=== PATIENT | female | born 1985 | race Caucasian/White ===

== ENCOUNTER 2018-05-07 17:45 | Emergency (ER) | payer BC, OTHER ==
[2018-05-07 17:51] VITALS: BP 130/73; PULSE 80; TEMP 98.8; BMI 21.9
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
== END 2018-05-07 21:36 | disposition home or self-care (01) ==
LOC: FER 17:45 → SUPCPDRO 17:45 → FER 21:36
DX: M54.2 Cervicalgia (principal); V43.52XA Car driver injured in collision with other type car in traffic accident, initial encounter; Y93.89 Activity, other specified; Y92.410 Unspecified street and highway as the place of occurrence of the external cause
CPT/HCPCS: 72050-TC-FY; 84703; 99282-25

== ENCOUNTER 2018-09-22 12:02 | Day surgery (SDC) | payer BC ==
[2018-09-21 15:12] VITALS: BMI 22.4
[2018-09-22] MEDS ORDERED: DEXAMETHASONE SOD PHOSPHATE 4 MG/1 ML VIAL ONE (13:41)
[2018-09-22] MEDS ORDERED: LIDOCAINE HCL/PF 2% SDV 5ML VIAL ONE (13:41)
[2018-09-22] MEDS ORDERED: MIDAZOLAM HCL 2 MG/2 ML SINGLE DOSE VIAL ONE (13:42)
[2018-09-22] MEDS ORDERED: PROPOFOL 20 ML ONE (13:42)
--- NOTE | 2018-09-22 13:50 | HP ---
Past Medical History - Primary Care Physician PCP:: Liborio Fernández - Admission Chief Complaint: 33yo P1 with at 6wks and missed Ab History of Present Illness: Pt with early and missed Ab. 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: Alzheimer's, CVA, Dementia, Migraine, Multiple Sclerosis, Peripheral Neuropathy, Parkinson's, Seizure, Syncope, TIA, Vertigo, Other Cardiovascular: No: AFIB, Aneurysm, Aortic Insufficiency, Aortic Stenosis, CAD, CHF, Deep Vein Thrombosis, HTN, Hyperlipdemia, [place], Mitral Insufficiency, Mitral Stenosis, Murmur, Pulmonary Hypertension, Other Pulmonary: No: Asthma, Bronchitis, Cancer, COPD, O2 Dependent, Pneumonia, Previously Intubated, Pulmonary Embolus, Pulmonary Fibrosis, Sleep Apnea, Other Gastrointestinal: Yes: Gastritis Hepatobiliary: No: Cirrhosis, Cholelithiasis, Cholecystitis, Choledocholithiasis , Hepatitis A, Hepatitis B, Hepatitis C, Other Renal/: No: Renal Failure, Renal Inusuff, BPH, Cancer, Hematuria, Hemodialysis , Neurogenic Bladder, Renal Calculi, UTI, Other Reproductive: No: Ectopic , Endometriosis, Fibroids, PID, Polycystic Ovary Syndrome, Postmenopausal, Other ...Para: 1 (C/S) ...Term: 1 ... Weeks Gestation by Dates: 6 Heme/Onc: No: Anemia, B12 Deficiency, Bleeding Disorder, Cancer, Current Chemotherapy, Current Radiation Therapy, Hemochromatosis, Hypercoaguable State, Myeloproliferative Synd, Sickle Cell Disease, Sickle Cell Trait, Thrombocytopenia, Other Infectious Disease: No: AIDS, C-Diff, Herpes Zoster, HIV, MRSA, STD's, Tuberculosis, VREF, Other Psych: No: Addictions, Anxiety, Bipolar, Depression, Panic, Psychosis, Schizophrenia, Other Musculoskeletal: No: Bursitis, Chronic low back pain, Hemiparesis, Hemiplegia, Osteoarthritis, Paraplegia, Other Rheumatology: No: Fibromyalgia, Gout, Lupus, Rheumatoid Arthritis, Sarcoidosis, Vasculitis, Other ENT: No: Allergic Rhinitis, Sinusitis, Other Endocrine: No: Racine's Disease, Lauri's Disease, Diabetes Insipidus, Diabetes Mellitus, Hyperparathyroidism, Hyperthyroidism, Hypothyroidism, Osteopenia, SIADH, Other Dermatology: No: Basal Cell, Cellulitis, Eczema, Melanoma, Psoriasis, Squamous Cell, Other - Past Surgical History Past Surgical History: Yes: Hx Myomectomy: No Hx Transabdominal Cerclage: No Additional Surgical History: Breast augmentation - Smoking History Smoking history: Never smoked Have you smoked in the past 12 months: No - Alcohol/Substance Use Hx Alcohol Use: Yes (OCCASIONAL BEFORE ) History of Substance Use: reports: None - Social History Usual Living Arrangement: Yes: With Spouse, With Child ADL: Independent History of Recent Travel: No Home Medications - Allergies Allergies/Adverse Reactions: Allergies Allergy/AdvReac Type Severity Reaction Status Date / Time shrimp Allergy Severe Hives Verified 09/22/18 12:40 - Home Medications Home Medications: Ambulatory Orders NK [No Known Home Medication] 09/21/18 Family Disease History - Family Disease History Family History: Unremarkable Review of Systems - Review of Systems Constitutional: reports: No Symptoms Eyes: reports: No Symptoms HENT: reports: No Symptoms Neck: reports: No Symptoms Cardiovascular: reports: No Symptoms Respiratory: reports: No Symptoms Gastrointestinal: reports: No Symptoms Genitourinary: reports: No Symptoms Breasts: reports: No Symptoms Reported Musculoskeletal: reports: No Symptoms Integumentary: reports: No Symptoms Neurological: reports: No Symptoms Endocrine: reports: No Symptoms Hematology/Lymphatic: reports: No Symptoms Psychiatric: reports: No Symptoms Pain Intensity: 0 Physical Exam-LAST WAXER Vital Signs: Vital Signs Temperature 98.6 F 09/22/18 12:33 Pulse Rate 69 09/22/18 12:33 Respiratory Rate 16 09/22/18 12:33 Blood Pressure 109/74 09/22/18 12:33 O2 Sat by Pulse Oximetry (%) 100 09/22/18 12:35 Constitutional: Yes: Well Nourished, No Distress, Calm Eyes: Yes: WNL, Conjunctiva Clear HENT: Yes: WNL, Atraumatic, Normocephalic Neck: Yes: WNL, Supple, Trachea Midline Cardiovascular: Yes: WNL, Regular Rate and Rhythm Respiratory: Yes: WNL, Regular, CTA Bilaterally Gastrointestinal: Yes: WNL, Normal Bowel Sounds, Soft ...Rectal Exam: Yes: Deferred Renal/: Yes: WNL Pelvis: Yes: WNL External Genitalia: Yes: Normal Internal Exam Deferred: No Vaginal Exam: Yes: Normal Cervix: Yes: Normal Uterus: Yes: Normal Adnexa: Normal: Left, Right Musculoskeletal: Yes: WNL Extremities: Yes: WNL Integumentary: Yes: WNL Neurological: Yes: WNL, Alert, Oriented ...Motor Strength: WNL Psychiatric: Yes: WNL, Alert, Oriented Imaging - Results Ultrasound: Report Reviewed, Image Reviewed Assessment/Plan 33yo P1 with at 6wks and missed Ab. We had discussed the risks, benefits, alternatives of surgery at length including but not limited to infection, bleeding, scarring, perforation, amenorrhea, infertility, hysterectomy, etc. The pt verbalized understanding and requested to proceed with surgery. I emphasized that all surgeries have risks and no guarantees can be provided.
[2018-09-22] MEDS ORDERED: KETOROLAC TROMETHAMINE 30 MG/1 ML VIAL ONE (14:06)
[2018-09-22] MEDS ORDERED: ONDANSETRON 4 MG/2 ML VIAL IVPUSH PRN (14:46)
[2018-09-22] MEDS ORDERED: oxyCODONE HCL 5 MG TABLET PO PRN (14:46)
[2018-09-22] MEDS ORDERED: LACTATED RINGERS SOLUTION 1,000 ML IV SCH (15:00)
[2018-09-22 16:41] VITALS: BP 115/70; PULSE 76; TEMP 98
--- NOTE | 2018-09-22 17:57 | OP ---
Operative Note - Note: Operative Date: 09/22/18 Pre-Operative Diagnosis: Missed Ab Operation: Suction, D&C, surgical Tx of missed Ab <14wk Findings: POC Post-Operative Diagnosis: Same as Pre-op Surgeon: Liborio Fernández Anesthesiologist/MASTERCAM PROGRAMMER: Sarah Cochran Anesthesia: General Specimens Removed: POC Estimated Blood Loss (mls): 30 Blood Volume Replaced (mls): 0 Fluid Volume Replaced (mls): 400 Operative Report Dictated: Yes
--- NOTE | 2018-09-22 19:47 | OP ---
DATE OF OPERATION: 09/22/2018 PREOPERATIVE DIAGNOSIS: Missed at approximately 6 weeks of estimated gestational age. POSTOPERATIVE DIAGNOSIS: Missed at approximately 6 weeks of estimated gestational age. PROCEDURE: Surgical treatment of missed , suction dilation and curettage. SURGEON: Kirsten Phan MD ANESTHESIOLOGIST: Sarah Cochran MD ANESTHESIA: General. COMPLICATIONS: None. ESTIMATED BLOOD LOSS: 30 mL. IV FLUIDS: 400 mL. PATHOLOGY: Products of conception. FINDINGS: Examination under anesthesia revealed a small, mobile uterus with no pelvic or adnexal masses. Products of conception were noted on suction curettage. No retained products of conception were noted at the end of the procedure. PROCEDURE DESCRIPTION: The patient was met preoperatively. Risks, benefits, alternatives of surgery were discussed in details. All questions were answered. The patient was then brought to the OR with the IV running. She was placed on the surgical table in the supine position. General anesthesia was achieved without difficulty. The patient was then placed in a dorsal lithotomy position using adjustable Bruce stirrups. She was examined under anesthesia with the findings as described above. The patient was then prepped and draped in the usual sterile fashion. A time-out was conducted as per standard protocol. A sterile speculum was introduced inside the vagina with good visualization of the cervix. The cervix was grasped with a single-tooth tenaculum. The cervical os was dilated to accommodate a size 21 Siaac dilator. A 7-mm suction curette was then introduced inside the uterine cavity. A suction curettage was performed, and old products of conception were removed. A sharp curette was then introduced, and no retained products of conception were noted with gentle curettage. Once this was completed, all of the instruments were removed from the patient. Good hemostasis was noted. Sponge, lap, instrument counts were correct. The patient was returned to supine position. She was then transferred to recovery room in stable condition and awake. KIRSTEN PHAN M.D. [id number]
--- NOTE | 2018-09-27 17:23 | PATH ---
Surgical Pathology Report Patient Name: YESENIA HALLMAN [facility]. Rec. #: [id number] /Age/Gender: 1985 (Age: 33) / F Account: [id number] Location: [facility] SURGICAL Taken: 09/22/2018 Received: 09/23/2018 Reported: 09/27/2018 Physicians: Liborio Fernández M.D. Specimen(s) Received ENDOMETRIAL CURETTINGS/PRODUCTS OF CONCEPTION Clinical History Missed Final Diagnosis ENDOMETRIAL CURETTINGS/PRODUCTS OF CONCEPTION, DILATION AND CURETTAGE: IMMATURE CHORIONIC VILLI CONSISTENT WITH PRODUCTS OF CONCEPTION. Electronically Signed Chloé Estevez M.D. Gross Description Received in formalin labeled "endometrial curettings/products of conception," is a 7.5 x 7.0 x 1.0 cm aggregate of shaw soft tissue fragments. Villous tissue is identified. No somatic tissue is identified. A customer account representative portion is submitted in one cassette. 09/24/2018 [facility]09/24/2018
== END 2018-09-22 16:30 | disposition home or self-care (01) ==
LOC: JASU-SURG 12:02
PROVIDERS: ATTEND Obstetrics & Gynecology
PROC: 10D17ZZ Extraction of Products of Conception, Retained, Via Natural or Artificial Opening (ICD-10-PCS; principal; 2018-09-22 13:30)
DX: O02.1 Missed abortion (principal)
CPT/HCPCS: 86850; 86900; 86901; 88305-TC; 94760

== ENCOUNTER 2019-02-26 14:53 | Emergency (ER) | payer BC ==
[2019-02-26 15:02] VITALS: BP 130/96; PULSE 115; TEMP 99; BMI 23.0
[2019-02-26 15:28] LABS: EPITHELIAL CELLS RARE /hpf
--- NOTE | 2019-02-26 16:11 | PDOC ---
Documentation entered by Olga Conroy SCRIBE, acting as scribe for Valdez Moore MD. Valdez Moore MD: This documentation has been prepared by the Marycarmen see Andrys, SCRIBE, under my direction and personally reviewed by me in its entirety. I confirm that the documentation accurately reflects all work, treatment, procedures, and medical decision making performed by me. History of Present Illness - General Chief Complaint: Vaginal Bleeding Stated Complaint: bleeding 13 weeks Time Seen by Provider: 02/26/19 14:57 History Source: Patient Exam Limitations: No Limitations - History of Present Illness Initial Comments: 02/26/19 15:11 The patient is a 33 year old female, 13 weeks , (A1) with no significant past medical history who presents to the ED with vaginal bleeding since earlier today. Patient reports light vaginal bleeding around 12:00pm earlier today. She states the vaginal bleeding is similar to the beginning of her menstrual period. Denies blood clot. Denies abdominal cramping. Patient had gestational diabetes during her 1st and had a miscarrriage during her second at 7 weeks. Denies fever or chills. Denies any other symptoms Surgical hx: , Breast augmentation, hymen removal Past History - Past Medical History Allergies/Adverse Reactions: Allergies Allergy/AdvReac Type Severity Reaction Status Date / Time shrimp Allergy Severe Hives Verified 02/26/19 14:54 Home Medications: Ambulatory Orders NK [No Known Home Medication] 02/26/19 Anemia: No Asthma: No Cancer: No Cardiac Disorders: No CVA: No COPD: No CHF: No Dementia: No Diabetes: No (GESTATIONAL) GI Disorders: Yes (BLEEDING ULCER @ 13 YRS OLD;MILD GASTRITIS) Disorders: No HTN: No Hypercholesterolemia: No Liver Disease: No Seizures: No Thyroid Disease: No - Surgical History Abdominal Surgery: No Appendectomy: No Cardiac Surgery: No Cholecystectomy: No Lung Surgery: No Neurologic Surgery: No Orthopedic Surgery: No - Reproductive History Is Patient Now?: Yes (#): 3 Para: 1 - Psycho Social/Smoking Cessation Hx Smoking History: Never smoked Have you smoked in the past 12 months: No Information on smoking cessation initiated: No Hx Alcohol Use: Yes (OCCASIONAL BEFORE ) Drug/Substance Use Hx: No Substance Use Type: Alcohol Hx Substance Use Treatment: No Review of Systems - Review of Systems Able to Perform ROS?: Yes Comments:: 02/26/19 15:11 CONSTITUTIONAL: Absent: fever, chills, diaphoresis, generalized weakness, malaise, loss of appetite HEENT: Absent: rhinorrhea, nasal congestion, throat pain, throat swelling, difficulty swallowing, mouth swelling, ear pain, eye pain, visual Changes CARDIOVASCULAR: Absent: chest pain, syncope, palpitations, irregular heart rate, lightheadedness , peripheral edema RESPIRATORY: Absent: cough, shortness of breath, dyspnea with exertion, orthopnea, wheezing, stridor, hemoptysis GASTROINTESTINAL: Absent: abdominal pain, abdominal distension, nausea, vomiting, diarrhea, constipation, melena, hematochezia GENITOURINARY: + vaginal bleeding Absent: dysuria, frequency, urgency, hesitancy, flank pain, genital pain MUSCULOSKELETAL: Absent: myalgia, arthralgia, joint swelling SKIN: Absent: rash, itching, pallor HEMATOLOGIC/IMMUNOLOGIC: Absent: easy bleeding, easy bruising, lymphadenopathy, frequent infections ENDOCRINE: Absent: unexplained weight gain, unexplained weight loss, heat intolerance, cold intolerance NEUROLOGIC: Absent: headache, focal weakness or paresthesias, dizziness, unsteady gait, seizure, mental status changes, bladder or bowel incontinence PSYCHIATRIC: Absent: anxiety, depression, suicidal or homicidal ideation, hallucinations. All Other Systems: Reviewed and Negative *Physical Exam - Vital Signs Last Vital Signs Temp Pulse Resp BP Pulse Ox 99 F 115 H 20 130/96 99 02/26/19 14:54 02/26/19 14:54 02/26/19 14:54 02/26/19 14:54 02/26/19 14:54 - Physical Exam 02/26/19 15:11 GENERAL: Well developed, well nourished. Awake and alert. No acute distress. HEENT: Normocephalic, atraumatic. PERRLA, EOMI. No conjunctival pallor. Sclera are non- icteric. Moist mucous membranes. Oropharynx is clear. NECK: Supple. Full ROM. No JVD. Carotid pulses 2+ and symmetric, without bruits. No thyromegaly. No lymphadenopathy. CARDIOVASCULAR: Regular rate and rhythm. No murmurs, rubs, or gallops. Distal pulses are 2+ and symmetric. PULMONARY: No evidence of respiratory distress. Lungs clear to auscultation bilaterally. No wheezing, rales or rhonchi. ABDOMINAL: Soft. Non-tender. Non-distended. No rebound or guarding. No organomegaly. Normoactive bowel sounds. MUSCULOSKELETAL Normal range of motion at all joints. No bony deformities or tenderness. No CVA tenderness. EXTREMITIES: No cyanosis. No clubbing. No edema. No calf tenderness. SKIN: Warm and dry. Normal capillary refill. No rashes. No jaundice. NEUROLOGICAL: Alert, awake, appropriate. Cranial nerves 2-12 intact. No deficits to light touch and temperature in face, upper extremities and lower extremities. No motor deficits in the in face, upper extremities and lower extremities. Normoreflexic in the upper and lower extremities. Normal speech. Toes are down- going bilaterally. Gait is normal without ataxia. PSYCHIATRIC: Cooperative. Good eye contact. Appropriate mood and affect. ED Treatment Course - RADIOLOGY Radiology Studies Ordered: Category Date Time Status <14WKS US [US] Stat Ultrasound 02/26/19 15:08 Ordered Medical Decision Making - Medical Decision Making 02/26/19 16:26 Ultrasound shows a normal 13-week gestation, with good heartbeat, no other abnormalities other than a small ovarian cyst. Patient exam is normal. Bleeding seems to be minor, with only 2 episodes of slight spotting today. There is no abdominal or pelvic pain or cramping. There is no lightheadedness, dizziness, chest pain, shortness of breath. Discussed with the patient the significance of first trimester bleeding. That this is considered a threatened AB and that she should be on bedrest and and close consultation with her PRINTING MECHANIST doctor. She had consulted her PRINTING MECHANIST doctor today, who gave her the same advice and arrange for follow-up next week. She is advised to follow-up as soon as possible, or return to the ER if bleeding becomes more severe or she experiences abdominal pain, pelvic pain or cramping. She is fully ambulatory and in no pain or other distress at discharge to follow-up as directed Discharge - Discharge Information Problems reviewed: Yes Clinical Impression/Diagnosis: Threatened Condition: Stable Disposition: HOME - Admission No - Follow up/Referral - Patient Discharge Instructions Patient Printed Discharge Instructions: DI for Threatened Additional Instructions: Bedrest. Contact your PRINTING MECHANIST physician immediately if bleeding gets heavier or there is cramping pain. Otherwise follow-up as directed. - Post Discharge Activity
== END 2019-02-26 16:34 | disposition home or self-care (01) ==
LOC: FER 14:53
DX: O26.891 Other specified pregnancy related conditions, first trimester (principal); Z3A.13 13 weeks gestation of pregnancy; O20.0 Threatened abortion; Z91.013 Allergy to seafood
CPT/HCPCS: 76801-TC; 81003; 81015; 84703; 99282-25

== ENCOUNTER 2019-03-31 10:30 | Emergency (ER) | payer BC ==
[2019-03-31 10:38] VITALS: BP 108/85; PULSE 106; TEMP 100.8; BMI 24.3
--- NOTE | 2019-03-31 10:53 | PDOC ---
History of Present Illness - General Chief Complaint: Cold Symptoms Stated Complaint: COUGH, 18 WKS Time Seen by Provider: 03/31/19 10:45 History Source: Patient Exam Limitations: No Limitations - History of Present Illness Initial Comments: 03/31/19 10:52 33y F A1 with no significant PMH presenting to ED for cough, congestion, body aches since Thursday. Pt states that she checked her temperature yesterday night and it was as high as 101. She took 2 pills of Tylenol at midnight. Cough is dry, she endorses sore throat, headache, body aches, 1 episode of nbnb emesis yesterday. Denies diarrhea, sick contacts, recent travel, hematuria, vaginal bleeding/discharge. PMD: PMH: none PSH: Meds: none Allergies: nkda Social: denies OB: At [facility] Past History - Past Medical History Allergies/Adverse Reactions: Allergies Allergy/AdvReac Type Severity Reaction Status Date / Time shrimp Allergy Severe Hives Verified 03/31/19 10:31 No Known Drug Allergies Allergy Verified 03/31/19 10:32 Home Medications: Ambulatory Orders Oseltamivir Phosphate [Tamiflu -] 75 mg PO BID #10 capsule 03/31/19 Anemia: No Asthma: No Cancer: No Cardiac Disorders: No CVA: No COPD: No CHF: No Dementia: No Diabetes: No (GESTATIONAL) GI Disorders: Yes (BLEEDING ULCER @ 13 YRS OLD;MILD GASTRITIS) Disorders: No HTN: No Hypercholesterolemia: No Liver Disease: No Seizures: No Thyroid Disease: No - Surgical History Abdominal Surgery: No Appendectomy: No Cardiac Surgery: No Cholecystectomy: No Lung Surgery: No Neurologic Surgery: No Orthopedic Surgery: No - Reproductive History (#): 3 Para: 1 - Psycho Social/Smoking Cessation Hx Smoking History: Never smoked Have you smoked in the past 12 months: No Information on smoking cessation initiated: No Hx Alcohol Use: No Drug/Substance Use Hx: No Substance Use Type: Alcohol Hx Substance Use Treatment: No Review of Systems - Review of Systems Constitutional: Yes: Chills, Fever, Malaise HEENTM: Yes: Nose Congestion, Throat Pain Respiratory: Yes: Cough Cardiac (ROS): No: Symptoms Reported ABD/GI: Yes: Vomiting : No: Symptoms Reported Musculoskeletal: Yes: Joint Pain, Muscle Pain Integumentary: No: Symptoms Reported Neurological: No: Symptoms reported *Physical Exam - Vital Signs Last Vital Signs Temp Pulse Resp BP Pulse Ox 100.8 F H 106 H 20 108/85 100 03/31/19 10:32 03/31/19 10:32 03/31/19 10:32 03/31/19 10:32 03/31/19 10:32 - Physical Exam General Appearance: Yes: Nourished, Appropriately Dressed, Mild Distress HEENT: positive: EOMI, RUFUS, TMs Normal, Pharynx Normal Neck: positive: Trachea midline, Supple. negative: Lymphadenopathy (R), Lymphadenopathy (L) Respiratory/Chest: positive: Lungs Clear, Normal Breath Sounds. negative: Crackles, Rales, Rhonchi, Stridor, Wheezing Cardiovascular: positive: Regular Rhythm, Regular Rate, S1, S2. negative: Edema , JVD, Murmur Vascular Pulses: Dorsalis-Pedis (R): 2+, Doralis-Pedis (L): 2+ Gastrointestinal/Abdominal: positive: Normal Bowel Sounds, Soft. negative: Tender Musculoskeletal: negative: CVA Tenderness Extremity: positive: Normal Capillary Refill. negative: Pedal Edema, Swelling, Calf Tenderness Integumentary: positive: Normal Color, Dry, Warm Neurologic: positive: social media sr strategy manager II-XII NML intact, Fully Oriented, Alert, Normal Mood/ Affect, Normal Response, Motor Strength 5/5 ED Treatment Course - LABORATORY CBC & Chemistry Diagram: 03/31/19 11:20 03/31/19 11:20 Medical Decision Making - Medical Decision Making 03/31/19 11:35 33y F at 18w gestation presenting to ED with flu like symptoms suspect viral illness. febrile to 100.8, tachycardia. -ivf, ofirmev -cbc, cmp, flu, ua 03/31/19 13:46 flu A positive. pt feeling better after meds. Rx for Tamiflu sent. labs show wbc 13. all other electrolytes wnl ua negative for infection and few bacteria. does not require tx at this time dispo: home advised pt to stay hydrated and f/u with pmd and ob next week. Discharge - Discharge Information Problems reviewed: Yes Clinical Impression/Diagnosis: Influenza A Condition: Improved Disposition: HOME - Admission No - Additional Discharge Information Prescriptions: Oseltamivir Phosphate [Tamiflu -] 75 mg PO BID #10 capsule - Follow up/Referral - Patient Discharge Instructions Patient Printed Discharge Instructions: DI for Influenza -- Adult Additional Instructions: You have the flu. A prescription for Tamiflu was sent to your pharmacy, take as directed. Please keep yourself well hydrated. Follow up with your doctor and OB next week. Come back to the ER if you have difficulty breathing, continue to have fevers for more than 4 days, have chest pain or if any new or concerning symptom develops. Thank you - Post Discharge Activity
--- NOTE | 2019-03-31 11:02 | PDOC ---
Attending Attestation - Resident Resident Name: Halina Larose - ED Attending Attestation I have performed the following: I have examined & evaluated the patient, The case was reviewed & discussed with the resident, I agree w/resident's findings & plan, Exceptions are as noted - HPI HPI: 03/31/19 12:45 Fever, nonproductive cough, body aches for 2 days. No dysuria or other urinary tract symptoms. No vaginal bleeding or discharge. No cramps. Taking small amounts of p.o. fluids 18 weeks , 3, para 1, AB 1. Uneventful thus far, followed by [facility], normal ultrasounds, no cramping or vaginal bleeding/ discharge 03/31/19 12:47 - Physicial Exam PE: 03/31/19 12:46 PE: Low-grade fever, remainder vital signs normal ENT mild congestion Lungs clear CV regular without murmur rub or gallop Abdomen soft nontender without mass organomegaly - Medical Decision Making 03/31/19 12:48 Assessment: Viral syndrome, possible influenza, no sign of pneumonia or other serious infection. Plan: White blood count elevated with left shift. Remainder of CBC and chemistries with minor abnormalities, nothing clinically significant. Positive for influenza A despite receiving flu vaccine Bedside ultrasound reveals healthy appearing intrauterine gestation, with heart rate of 147. IV fluids administered for hydration. Continue oral hydration Tamiflu begun with prescription for continuing course of therapy. Advised to follow-up with primary physician in 2 or 3 days. If symptoms worsen and there is nausea vomiting or inability to hold down fluids return to the emergency room immediately. Also if there is cramping in the abdomen or pelvis, vaginal bleeding or discharge. Fully ambulatory in no acute distress at discharge with to follow-up as directed
[2019-03-31] MEDS ORDERED: SODIUM CHLORIDE 1,000 ML IV STA (11:03)
[2019-03-31] MEDS ORDERED: ACETAMINOPHEN 1000 MG/100 ML VIAL (NON FORMULARY) IVPB ONE (11:10)
[2019-03-31] MEDS ORDERED: ACETAMINOPHEN INJECTION 100 ML IVPB ONE (11:26)
[2019-03-31 11:38] LABS: HEMATOCRIT 30.7 % (32.4-45.2); HEMOGLOBIN 10.7 GM/dl (10.7-15.3); MCH 31.2 pg (25.7-33.7); MCHC 34.9 g/dl (32.0-36.0); MEAN CELL VOLUME 89.2 fl (80-96); MEAN PLT VOLUME 8.1 fl (7.5-11.1); PLATELET COUNT 300 K/MM3 (134-434); RBC 3.44 M/mm3 (3.60-5.2); RDW 12.5 % (11.6-15.6); WHITE BLOOD COUNT 13.2 K/mm3 (4.0-10.8)
[2019-03-31 11:43] LABS: ADD RBC MORPHOLOGY YES
[2019-03-31 11:45] LABS: BILIRUBIN,TOTAL 0.2 mg/dl (0.2-1); CALCIUM 8.2 mg/dl (8.5-10); CREATININE 0.5 mg/dl (0.55-1.3); POTASSIUM 3.9 mmol/L (3.5-5.1); TOT PROT 6.1 g/dl (6.4-8.2)
[2019-03-31 12:10] LABS: PLATELET ESTIMATE ADEQUATE
[2019-03-31 13:34] LABS: AMORP PHOS 2+ /hpf (NONE SEEN); EPITHELIAL CELLS FEW /hpf
== END 2019-03-31 13:48 | disposition home or self-care (01) ==
LOC: FER 10:30
PROC: BY4CZZZ Ultrasonography of Second Trimester, Single Fetus (ICD-10-PCS; principal; 2019-03-31)
PROC: 3E033NZ Introduction of Analgesics, Hypnotics, Sedatives into Peripheral Vein, Percutaneous Approach (ICD-10-PCS; 2019-03-31)
PROC: 3E0337Z Introduction of Electrolytic and Water Balance Substance into Peripheral Vein, Percutaneous Approach (ICD-10-PCS; 2019-03-31)
DX: O26.892 Other specified pregnancy related conditions, second trimester (principal); J10.1 Influenza due to other identified influenza virus with other respiratory manifestations; Z3A.18 18 weeks gestation of pregnancy; R00.0 Tachycardia, unspecified; Z91.013 Allergy to seafood
CPT/HCPCS: 36415; 80053; 81003; 81015; 85025; 87086; 87804; 99284-25; J0131; J7030